=== PATIENT | female | born 1980 | race Caucasian/White ===

== ENCOUNTER 2024-08-04 21:19 | Emergency (ER) | payer MEDICAID, SELFPAY ==
[2024-08-04 21:20] VITALS: BMI 24.1
[2024-08-04 22:19] VITALS: BP 99/68; PULSE 73; RESP 17; TEMP 36.9; O2SAT 99
--- NOTE | 2024-08-04 22:33 | XR_ITS ---
Examination: CT brain head without contrast. 2-D sagittal coronal reconstructions Date and time of exam:August 04, 2024 1054 hrs. Indications: Syncopal episode today followed by left arm pain CTDI: vol (mGy):23 DLP: (mGycm):897 Technique: Multiple CT axial sections of the brain have been obtained, 5 mm slice thickness. Contrast has not been administered. 2-D sagittal, coronal reconstructions have been obtained Low dose protocols were performed. One or more of the following dose reduction techniques were used; automated exposure control, adjustment of the mA and/or KV according to patient size, use of iterative reconstruction technique. Findings: No significant ventricular enlargement. Intra-axial or extra-axial hemorrhage density is not seen. No mass effect or midline shift Basal cisterns are not remarkable. Fourth ventricle is midline. Cranial vault intact. Impression: Negative for acute hemorrhage, mass effect or midline shift
--- NOTE | 2024-08-04 22:34 | XR_ITS ---
Examination: PA lateral chest 2 views Technique: Upright PA lateral chest 2 views Exam date and time: August 04, 2024 1047 hrs. Indications: Syncopal episode followed by chest pain today Findings: Normal heart size Lungs are clear. The osseous structures are intact Impression: No active disease
--- NOTE | 2024-08-04 22:34 | PD.EDRME ---
Rapid Medical Screening Exam RME Arrival date/time: 08/04/24 21:19 44-year-old female presents emergency department reporting had syncopal episode that occurred today. Chief Complaint: Syncope / Near Syncope Time Seen by Provider: 08/04/24 22:26 Vital signs: Vital Signs Temperature 98.5 F 08/04/24 22:19 Pulse Rate 73 08/04/24 22:19 Respiratory Rate 17 08/04/24 22:19 Blood Pressure 99/68 08/04/24 22:19 Pulse Oximetry (%) 99 08/04/24 22:19 Oxygen Delivery Method Room Air 08/04/24 22:19 Vital signs reviewed by provider: Yes
[2024-08-04 23:04] LABS: Collection Type, Urine Clean Catch; RBC,Urine 0 /hpf (0-3)
[2024-08-04 23:21] LABS: Bacteria,Urine Rare; Bilirubin,Urine Negative (Negative); Blood,Urine Negative (Negative); Clarity,Urine Clear (Clear/Hazy); Color,Urine Yellow (Lt Yel-Yel); Glucose, Urine Negative (Negative); Ketones,Urine Negative (Negative); Leukocyte Esterase,Urine Positive (Negative); Nitrite,Urine Negative (Negative); Protein,Urine 1+ (Neg - Trace); Specific Gravity,Urine 1.032 (1.001-1.035); Squamous Epithelial Cell,Urine 3 /hpf (0-5); WBC,Urine 39 /hpf (0-5)
[2024-08-04 23:29] LABS: Basophils # (Auto) 0.1 Thou/mm3 (0.0-0.2); Basophils % (Auto) 1 % (0-2.5); Eosinophils # (Auto) 0.2 Thou/mm3 (0.0-0.5); Eosinophils % (Auto) 2 % (0-10); Hematocrit 37.1 % (36.0-46.0); Hemoglobin 13.2 g/dL (12.0-16.0); Immature Granulocytes % (Auto) 0 % (0-0); Immature Granulocytes Auto 0.02 Thou/mm3 (0.00-0.00); Lymphocytes % (Auto) 22 % (10-50); Mean Corpuscular HGB Conc 35.6 g/dl (31.0-37.0); Mean Corpuscular Hemoglobin 31.8 pg (25.0-35.0); Mean Corpuscular Volume 89 fL (80-100); Monocytes # (Auto) 0.8 Thou/mm3 (0.0-0.8); Monocytes % (Auto) 9 % (0-12); Neutrophils # (Auto) 6.1 Thou/mm3 (1.8-7.7); Neutrophils % (Auto) 67 % (37-80); Nucleated Red Blood Cell % 0 /100 WBC (0); Platelet Count 258 Thou/mm3 (140-440); Red Blood Count 4.15 Miln/mm3 (4.00-5.20); White Blood Count 9.1 Thou/mm3 (3.6-11.0)
[2024-08-04 23:36] LABS: Amphetamine/Methamp Scrn,U Negative (Negative); Barbiturate Screen,Urine Negative (Negative); Benzodiazepines Screen,Urine Negative (Negative); Benzoylecgonine Screen, Ur Negative (Negative); Fentanyl Screen,Urine Negative (Negative); Opiate Screen,Urine Negative (Negative); THC Screen,Urine Negative (Negative)
[2024-08-04 23:45] LABS: B-Type Natriuretic Peptide < 20 pg/mL (0-100); INR 1.1 (0.9-1.3); Partial Thromboplastin Time 27.1 Seconds (22.0-36.0); Prothrombin Time 11.9 Seconds (9.0-12.2)
[2024-08-04 23:46] LABS: Alanine Aminotransferase < 7 U/L (10-49); Albumin, Serum 4.5 gm/dL (3.5-5.0); Albumin/Globulin Ratio 1.6 (1.2-2.2); Alkaline Phosphatase 61 U/L (46-116); Anion Gap 8 (7-16); Aspartate Amino Transferase 18 U/L (0-34); BUN/Creatinine Ratio 23 Ratio (12-20); Bilirubin,Total 0.9 mg/dL (0.3-1.2); Blood Urea Nitrogen 16 mg/dL (9-23); Calcium 10.3 mg/dL (8.3-10.6); Calcium (Corrected) 10.3 mg/dL (8.5-10.1); Chloride 104 mMol/L (98-107); Creatinine (Component) 0.7 mg/dL (0.6-1.3); Estimated Creatinine Clearance 92.3 mL/min (>60); Globulin 2.9 gm/dL (2.3-3.5); Glucose 96 mg/dL (74-106); Magnesium 1.9 mg/dL (1.6-2.6); Osmolality,Calculated 282 (275-295); Potassium 3.7 mMol/L (3.4-5.1); Sodium 141 mMol/L (136-145); Total Protein 7.4 gm/dL (5.7-8.2); Troponin I < 0.002 ng/mL (0.0-0.045); eGFR > 60 See Note
[2024-08-05 00:06] LABS: HCG,Qualitative Serum Negative
[2024-08-05 03:22] VITALS: BP 113/74; BP 116/81; BP 117/75; PULSE 68; PULSE 70; PULSE 73
--- NOTE | 2024-08-05 03:37 | EDNOTE_ITS ---
ED Syncope RME/HPI General Chief Complaint: Syncope / Near Syncope Stated Complaint: FAINTED, LEFT ARM PAIN Time Seen by Provider: 08/04/24 22:26 Source: patient Arrival date/time: 08/04/24 21:19 Mode of arrival: ambulatory Limitations: no limitations RME / HPI RME / HPI narrative: 08/04/24 21:19 44-year-old female presents emergency department reporting had syncopal episode that occurred today. DR GENAO MAIN ED EVALUATION: 44-year-old female with no significant past medical history who presents to the emergency department today for evaluation following syncopal episode earlier today. Patient complains of 4 out of 10 left shoulder pain. Denies any other medical complaints or associated symptoms. Related Data Previous Rx's ?Medication ?Instructions ?Recorded pantoprazole 40 mg tablet,delayed 40 mg PO QDAY #30 tabs 09/24/22 release (Protonix) ibuprofen 800 mg tablet 800 mg PO TID PRN pain #30 tabs 07/19/23 tramadol 50 mg tablet 50 mg PO BID PRN pain #6 tabs 07/19/23 cefuroxime axetil 500 mg tablet 500 mg PO BID #14 tabs 09/30/23 ibuprofen 800 mg tablet 800 mg PO TID PRN pain #60 tabs 09/30/23 Allergies Allergy/AdvReac Type Severity Reaction Status Date / Time No Known Allergies Allergy Verified 07/19/23 16:52 Review of Systems Review of Systems Systems Reviewed: All systems reviewed, normal except as documented Past Medical History Past Medical History CARDIAC: Negative Congestive Heart Failure RESPIRATORY: Negative Chronic Obstructive Pulmonary Disease (COPD) GENITOURINARY: Positive Kidney Stones; Negative Renal Disease ENDOCRINE: Negative Diabetes Mellitus Type 1 or Diabetes Mellitus Type 2 Social History SMOKING STATUS: Never smoker SUBSTANCE USE: does not use ED Exam Narrative Physical exam: GENERAL APPEARANCE: alert and oriented x 4, well-developed, well-nourished, no acute distress VITALS: All vitals were reviewed and the pulse ox is 96% on room air, which is normal according to my interpretation. HEENT: Normocephalic, atraumatic; pupils equal, round, reactive to light; EOMI; mucous membranes pink, moist; oropharynx clear NECK: Supple LUNGS: CTABL; no wheezes, no rales, no rhonchi HEART: Regular rate, regular rhythm; normal S1, S2; no murmurs ABDOMEN: non distended; normal BS; soft, no tenderness, no guarding, no rebound; no masses, no organomegaly, no hernia BACK: no CVA tenderness EXTREMITIES: atraumatic; no edema NEUROLOGIC: awake; alert and oriented x4; cranial nerves II-XII grossly intact; no focal sensory or motor deficits PSYCHIATRIC: appropriate mood and affect SKIN: warm, dry, normal color; no rashes General Limitations: Present no limitations Course Quality Measures none Orders Category Date Time Status Bedside COVID-19 Antigen Test NOW Care 08/04/24 22:34 Completed Bedside Influenza A&B Antigen Test NOW Care 08/04/24 22:34 Completed EKG (ED ONLY) *Do not use* NOW Care 08/04/24 22:34 Completed Orthostatic Vitals NOW Care 08/05/24 02:[address] head/brain wo con Stat Exams 08/04/24 22:33 Completed EKG (ED Only) Stat Exams 08/04/24 22:34 Ordered XR chest 2V Stat Exams 08/04/24 22:34 Completed B-Type Natriuretic Peptide Stat Lab 08/04/24 23:09 Completed CBC Stat Lab 08/04/24 23:09 Completed Comprehensive Metabolic Panel Stat Lab 08/04/24 23:09 Completed Drug Screen,Urine Stat Lab 08/04/24 22:35 Completed HCG,Qualitative Serum Stat Lab 08/04/24 23:09 Completed Magnesium Stat Lab 08/04/24 23:09 Completed Partial Thromboplastin Time Stat Lab 08/04/24 23:09 Completed Prothrombin Time with INR Stat Lab 08/04/24 23:09 Completed Troponin I Stat Lab 08/04/24 23:09 Completed Urinalysis Stat Lab 08/04/24 22:35 Completed Vital Signs Vital signs: Vital Signs Temperature 98.5 F 08/04/24 22:19 Pulse Rate 73 08/04/24 22:19 Respiratory Rate 17 08/04/24 22:19 Blood Pressure 99/68 08/04/24 22:19 Pulse Oximetry (%) 99 08/04/24 22:19 Oxygen Delivery Method Room Air 08/04/24 22:19 Syncope MDM Narrative MDM Narrative:: Scribe Attestation: I, Conjellyfer Howie, am scribing for and in the presence of Dr. Genao. Provider Notation: Although this document has been carefully reviewed, there may still be some phonetic and other typographical errors. These errors are purely grammatical due to imperfections in the software program and should not be construed in any way to compromise the substance of the patient's medical care during this visit. Patient data External records reviewed:: [facility] previous records Clinical information provided by:: patient Social determinants that could affect healthcare access:: none Patient has the following chronic illnesses:: n/a How is presenting disease/condition affected by chronic disease/condition?: no chronic disease Evaluation data The following diagnostics were reviewed and interpreted by me:: lab results and radiology exam(s) Lab and/or radiology exams considered but not ordered:: n/a Interpretation Summary: I personally reviewed the radiology data and agree with the radiologist's interpretation. Examination: CT brain head without contrast. 2-D sagittal coronal reconstructions Date and time of exam:August 04, 2024 1054 hrs. Indications: Syncopal episode today followed by left arm pain Findings: No significant ventricular enlargement. Intra-axial or extra-axial hemorrhage density is not seen. No mass effect or midline shift Basal cisterns are not remarkable. Fourth ventricle is midline. Cranial vault intact. Impression: Negative for acute hemorrhage, mass effect or midline shift Dictated By: Maciel Kirby MD Examination: PA lateral chest 2 views Technique: Upright PA lateral chest 2 views Exam date and time: August 04, 2024 1047 hrs. Indications: Syncopal episode followed by chest pain today Findings: Normal heart size Lungs are clear. The osseous structures are intact Impression: No active disease Dictated By: Maciel Kirby MD Medications / Prescriptions Medications or Prescriptions considered but not ordered:: n/a Medication administrations:: n/a Consultations Consultation(s) initiated? (list below): No Diagnosis Syncope Differential Diagnosis: syncope due to orthostatic hypotension, vasovagal syncope, pulmonary embolism and dehydration Most likely diagnosis given after review of the tests above:: Syncope Admission Request Was there a request for admission?: No Disposition Plan Disposition Plan: Discharge Discharge Attestation Discharge Attestation: The patient and all family members were given an opportunity to ask questions and understood the discharge instructions. Discharge instructions specifically effects, indications for sooner follow up or return to the emergency department, and the expected course of current diagnosis. Patient condition: Stable Discharge Plan Plan Patient Disposition: HOME (Self Care) Prescriptions/Referrals Prescriptions/Med Rec: No Action ibuprofen 800 mg tablet 800 mg PO TID PRN (Reason: pain) Qty: 30 0RF tramadol 50 mg tablet 50 mg PO BID PRN (Reason: pain) Qty: 6 0RF ibuprofen 800 mg tablet 800 mg PO TID PRN (Reason: pain) Qty: 60 0RF cefuroxime axetil 500 mg tablet 500 mg PO BID Qty: 14 0RF pantoprazole [Protonix] 40 mg tablet,delayed release (DR/EC) 40 mg PO QDAY Qty: 30 0RF Referrals: No Primary/Family,Physician [Primary Care Provider] - In 1 week Problem List Clinical Impression: Syncope Patient/Caregiver Discharge Instructions Education Materials: ED Fainting, Uncertain Cause Print Language: [place]de[place] Stand Alone Forms: [facility] Award Info., Patient Portal Info Letter
== END 2024-08-05 03:45 | disposition home or self-care (01) ==
PROVIDERS: Emergency Provider Emergency Medicine
DX: R55 Syncope and collapse (principal); R07.9 Chest pain, unspecified; M79.602 Pain in left arm
CPT/HCPCS: 36415; 70450; 71046; 80053; 80307; 81001; 83735; 83880; 84484; 84703; 85025; 85610; 85730; 87400; 87811; 93005; 99284

== ENCOUNTER 2025-01-08 01:43 | Emergency (ER) | payer MEDICAID, SELFPAY ==
[2025-01-08 01:44] VITALS: BMI 26.4
[2025-01-08 02:50] VITALS: BP 110/74; PULSE 67; RESP 16; TEMP 36.9; O2SAT 99
--- NOTE | 2025-01-08 03:28 | PD.EDHA ---
ED Headache RME/HPI General Chief Complaint: Headache Stated Complaint: HEADACHE/ ALLERGY ATTACK Time Seen by Provider: 01/08/25 03:16 Arrival date/time: 01/08/25 01:43 44F with history of anxiety/panic disorder presents to ED with 4 days of VALLEJO and light-sensitivity. Patient also had a panic attack earlier, but that has resolved. Patient states ibuprofen helps, but doesn't take pain away completely. Limitations: no limitations Related Data Previous Rx's ?Medication ?Instructions ?Recorded pantoprazole 40 mg tablet,delayed 40 mg PO QDAY #30 tabs 09/24/22 release (Protonix) ibuprofen 800 mg tablet 800 mg PO TID PRN pain #30 tabs 07/19/23 tramadol 50 mg tablet 50 mg PO BID PRN pain #6 tabs 07/19/23 cefuroxime axetil 500 mg tablet 500 mg PO BID #14 tabs 09/30/23 ibuprofen 800 mg tablet 800 mg PO TID PRN pain #60 tabs 09/30/23 rizatriptan 10 mg disintegrating See Rx Instructions PO .COMPLEX 01/08/25 tablet (Maxalt-CATEGORY DEVELOPMENT ANALYST) #20 tabs Allergies Allergy/AdvReac Type Severity Reaction Status Date / Time No Known Allergies Allergy Verified 07/19/23 16:52 Review of Systems Review of Systems Systems Reviewed: All systems reviewed, normal except as documented Constitutional Constitutional: Reports system reviewed and no additional complaints, except as documented, Reports as per HPI, Denies fever(s) and Reports headache(s) Eyes Eyes: Reports as per HPI and Reports photophobia ENT Ears, Nose, Mouth, and Throat: Denies disequilibrium and Reports headache(s) Cardiovascular Cardiovascular: Reports system reviewed and no additional complaints, except as documented, Denies chest pain and Denies dyspnea Respiratory Respiratory: Reports system reviewed and no additional complaints, except as documented, Denies cough and Denies dyspnea Gastrointestinal Gastrointestinal: Reports system reviewed and no additional complaints, except as documented, Denies abdominal pain, Denies nausea and Denies vomiting Neurologic Neurologic: Reports system reviewed and no additional complaints, except as documented, Denies confusion, Denies disequilibrium and Reports headache(s) Psychiatric Psychiatric: Reports as per HPI, Denies confusion and Reports panic attacks Past Medical History Past Medical History CARDIAC: Negative Congestive Heart Failure RESPIRATORY: Negative Chronic Obstructive Pulmonary Disease (COPD) GENITOURINARY: Positive Kidney Stones; Negative Renal Disease ENDOCRINE: Negative Diabetes Mellitus Type 1 or Diabetes Mellitus Type 2 Social History SMOKING STATUS: Never smoker SUBSTANCE USE: does not use ED Exam General Limitations: Present no limitations General appearance: Present alert and in no apparent distress Head Head exam: Present atraumatic Eye Eye exam: Present normal appearance, PERRL and EOMI ENT ENT exam: Present normal exam, normal oropharynx and mucous membranes moist Neck Neck exam: Present normal inspection, full ROM and trachea midline Chest Chest inspection: Present normal inspection and symmetric chest wall rise Respiratory Respiratory exam: Present normal lung sounds bilaterally Cardiovascular Cardiovascular exam: Present regular rate, normal rhythm and normal heart sounds Abdominal Exam Abdominal exam: Present soft and normal bowel sounds Extremities Exam Extremities exam: Present normal inspection and full ROM Back Exam Back exam: Present normal inspection and full ROM Neurological Exam Neurological exam: Present alert, oriented X3 and CN II-XII intact Psychiatric Psychiatric exam: Present normal affect and normal mood Skin Skin exam: Present warm, dry, intact and normal color Course Quality Measures none Orders Category Date Time Status Metoclopramide [Reglan] Med 01/08/25 03:19 Discontinued 10 mg PO X1 ONE SUMAtriptan INJ [Imitrex Inj] Med 01/08/25 03:19 Discontinued 6 mg SC X1 ONE Vital Signs Vital signs: Vital Signs Temperature 98.5 F 01/08/25 02:50 Pulse Rate 67 01/08/25 02:50 Respiratory Rate 16 01/08/25 02:50 Blood Pressure 110/74 01/08/25 02:50 Pulse Oximetry (%) 99 01/08/25 02:50 Oxygen Delivery Method Room Air 01/08/25 02:50 O2 at 99% on RA and WNLs Headache MDM Narrative MDM Narrative:: 44F with history of anxiety/panic disorder presents to ED with 4 days of VALLEJO and light-sensitivity. Patient also had a panic attack earlier, but that has resolved. Patient states ibuprofen helps, but doesn't take pain away completely. Physical exam reveals normal pupil response and EOM. Normal WOB. Gait normal. Patient is afebrile, calm, and alert. Patient had normal head CT 6 months ago. Migraine meds improved symptoms. Patient data External records reviewed:: [facility] previous records Clinical information provided by:: patient Social determinants that could affect healthcare access:: mental health Patient has the following chronic illnesses:: anxiety/panic disorder How is presenting disease/condition affected by chronic disease/condition?: exacerbated by Evaluation data The following diagnostics were reviewed and interpreted by me:: other (specify) (none) Lab and/or radiology exams considered but not ordered:: not ordered Interpretation Summary: n/a Medications / Prescriptions Medications or Prescriptions considered but not ordered:: ordered Medication administrations:: Medication Administration History Discontinued Medications Metoclopramide HCl (Metoclopramide 5 Mg Tablet) 10 mg PO X1 ONE Stop: 01/08/25 03:20 Last Admin: 01/08/25 03:35 Dose: 10 mg Documented By: Sumatriptan Succinate (Sumatriptan Inj 6 Mg/0.5 Ml Vial) 6 mg SC X1 ONE Stop: 01/08/25 03:20 Last Admin: 01/08/25 03:35 Dose: 6 mg Documented By: above Consultations Consultation(s) initiated? (list below): No Diagnosis Differential diagnosis headache: migraine, tension headache, subarachnoid hemorrhage, headache, meningitis, sinusitis and postconcussion syndrome Most likely diagnosis given after review of the tests above:: Migraine Admission Indicated Admission indicated?: not indicated Admission Request Was there a request for admission?: No Disposition Plan Disposition Plan: Discharge Discharge Attestation Discharge Attestation: The patient and all family members were given an opportunity to ask questions and understood the discharge instructions. Discharge instructions specifically effects, indications for sooner follow up or return to the emergency department, and the expected course of current diagnosis. Patient condition: Stable Discharge Plan Plan Patient Disposition: HOME (Self Care) Discharge Disposition comment: Stable Prescriptions/Referrals Prescriptions/Med Rec: New rizatriptan [Maxalt-CATEGORY DEVELOPMENT ANALYST] 10 mg tablet,disintegrating See Rx Instructions .ROUTE .COMPLEX Qty: 20 0RF Rx Instructions: take 1 tab at onset of headache; if no relief may repeat 1 tab after at least 2 hrs; max = 3 tabs/24 hr No Action ibuprofen 800 mg tablet 800 mg PO TID PRN (Reason: pain) Qty: 30 0RF tramadol 50 mg tablet 50 mg PO BID PRN (Reason: pain) Qty: 6 0RF ibuprofen 800 mg tablet 800 mg PO TID PRN (Reason: pain) Qty: 60 0RF cefuroxime axetil 500 mg tablet 500 mg PO BID Qty: 14 0RF pantoprazole [Protonix] 40 mg tablet,delayed release (DR/EC) 40 mg PO QDAY Qty: 30 0RF Referrals: Temporary Provider,ED [Physician] - In 1 week Problem List Clinical Impression: Migraine Patient/Caregiver Discharge Instructions Education Materials: ED Headache, Migraine, Classic Additional Instructions: Please follow-up with PCP within 24-48 hours and return immediately if symptoms worsen. Print Language: [place]ican Stand Alone Forms: Patient Portal Info Letter PA/[employer] Supervising Physician PA/[employer] Supervising Physician: Dr. Christine
[2025-01-08] MEDS: SUMAtriptan INJ 6 MG/0.5 ML VIAL SC (03:35)
[2025-01-08] MEDS: METOCLOPRAMIDE 5 MG TABLET 10 MG PO (03:35)
== END 2025-01-08 04:26 | disposition home or self-care (01) ==
PROVIDERS: Emergency Provider Emergency Medicine; PCP Family Medicine
DX: G43.909 Migraine, unspecified, not intractable, without status migrainosus (principal)
CPT/HCPCS: 96372; 99283; J3030; A9270

== ENCOUNTER 2025-04-10 10:14 | Emergency (ER) | payer MEDICAID, SELFPAY ==
[2025-04-10 10:14] VITALS: BMI 22.3
[2025-04-10 11:13] VITALS: BP 99/65; PULSE 78; RESP 16; TEMP 37.1; O2SAT 99
--- NOTE | 2025-04-10 11:18 | XR_ITS ---
Examination: CT abdomen and pelvis without contrast. Coronal 3-D reconstructions. Sagittal 2-D reconstructions. Date and time of exam:April 10, 2025 1428 hours, comparison September 30, 2023 INDICATIONS: Left lower abdominal pain beginning today, history kidney stones CTDI: vol (mGy): 5.93 DLP: (mGycm): 312 Technique: Axial images of the abdomen have been obtained, 3 mm slice thickness Intravenous contrast material has not been administered. Low dose protocols were performed. One or more of the following dose reduction techniques were used; automated exposure control, adjustment of the mA and/or KV according to patient size, use of iterative reconstruction technique. Findings: No focal liver or splenic lesions Gallstones No pancreatic or adrenal mass Bilateral renal calculi, the largest 4 mm left kidney No hydronephrosis or ureteral calculi Normal appendix No bowel obstruction Aorta normal size Anteverted diffusely mildly enlarged uterus No bladder mass or bladder calculi Moderate disc narrowing L5-S1 IMPRESSION: Bilateral nonobstructing renal calculi, no hydronephrosis or renal calculi Normal appendix Recommend pelvic sonography to assess the enlarged uterus No bladder mass or bladder calculi
--- NOTE | 2025-04-10 11:20 | PD.EDABDPN ---
ED Abdominal Pain RME/HPI General Chief Complaint: Abdominal Pain Stated complaint: LEFT FLANK PAIN SINCE YEST Time seen by provider: 04/10/25 11:16 Arrival date/time: 04/10/25 10:14 Limitations: no limitations RME / HPI RME / HPI narrative: 44-year-old female here today with LLQ pain since yesterday with nausea. Hx of kidney stones. She denies any fevers or chills. No changes in bowel movements. Denies any lower leg edema. Denies any urinary frequency or dysuria. She has no other acute complaints. Related Data Previous Rx's ?Medication ?Instructions ?Recorded pantoprazole 40 mg tablet,delayed 40 mg PO QDAY #30 tabs 09/24/22 release (Protonix) ibuprofen 800 mg tablet 800 mg PO TID PRN pain #30 tabs 07/19/23 tramadol 50 mg tablet 50 mg PO BID PRN pain #6 tabs 07/19/23 cefuroxime axetil 500 mg tablet 500 mg PO BID #14 tabs 09/30/23 ibuprofen 800 mg tablet 800 mg PO TID PRN pain #60 tabs 09/30/23 rizatriptan 10 mg disintegrating See Rx Instructions PO .COMPLEX 01/08/25 tablet (Maxalt-CARE MANAGEMENT COORDINATOR) #20 tabs sulfamethoxazole 800 1 tab PO BID 7 days #14 tabs 04/10/25 mg-trimethoprim 160 mg tablet (Bactrim DS) Allergies Allergy/AdvReac Type Severity Reaction Status Date / Time No Known Allergies Allergy Verified 04/10/25 10:16 Review of Systems Review of Systems Systems Reviewed: All systems reviewed, normal except as documented ED Exam General Limitations: Present no limitations General appearance: Present alert and in no apparent distress Head Head exam: Present atraumatic Eye Eye exam: Present normal appearance, PERRL and EOMI ENT ENT exam: Present normal exam, normal oropharynx and mucous membranes moist Neck Neck exam: Present normal inspection, full ROM and trachea midline Chest Chest inspection: Present normal inspection and symmetric chest wall rise Respiratory Respiratory exam: Present normal lung sounds bilaterally Cardiovascular Cardiovascular exam: Present regular rate, normal rhythm and normal heart sounds Abdominal Exam Abdominal exam: Present soft and normal bowel sounds Extremities Exam Extremities exam: Present normal inspection and full ROM Back Exam Back exam: Present normal inspection and full ROM; Absent CVA tenderness (R) or CVA tenderness (L) Neurological Exam Neurological exam: Present alert and oriented X3 Psychiatric Psychiatric exam: Present normal affect and normal mood Skin Skin exam: Present warm, dry, intact and normal color Course Quality Measures none Orders Category Date Time Status CT abdomen pelvis wo con Stat Exams 04/10/25 11:18 Completed US pelvic complete Stat Exams 04/10/25 15:20 Completed CBC Stat Lab 04/10/25 11:36 Completed CMP [Comprehensive Metabolic Panel] Stat Lab 04/10/25 11:36 Completed HCG,Qualitative Serum Stat Lab 04/10/25 11:36 Completed UA, C/S IF [Urinalysis, C/S if Indicated] Stat Lab 04/10/25 12:22 Completed Ondansetron Odt [Zofran Odt] Med 04/10/25 11:18 Discontinued 4 mg PO X1 ONE Trimethoprim/Sulfa 160/800 Ds [Bactrim Ds] Med 04/10/25 17:54 Discontinued 1 tab PO X1 ONE Vital Signs Vital signs: Vital Signs Temperature 98.7 F 04/10/25 11:13 Pulse Rate 78 04/10/25 11:13 Respiratory Rate 16 04/10/25 11:13 Blood Pressure 99/65 04/10/25 11:13 Pulse Oximetry (%) 99 04/10/25 11:13 Oxygen Delivery Method Room Air 04/10/25 11:13 Abdominal Pain MDM MDM Narrative MDM Narrative:: 44-year-old female here today with LLQ pain since yesterday with nausea. Hx of kidney stones. She denies any fevers or chills. No changes in bowel movements. Denies any lower leg edema. Denies any urinary frequency or dysuria. She has no other acute complaints. On exam, patient is ill-appearing but nontoxic-appearing. Vital signs are stable. Abdomen is soft and supple. Workup here was obtained, CBC is unremarkable. Metabolic panel is unremarkable. Urinalysis reveals microscopic hematuria. CT of the abdomen pelvis was obtained which is unremarkable exception of enlarged uterus. We discussed her test findings. Patient states she is not having any current menstrual cycle. We also discussed her CAT scan. I do believe the patient can consider an outpatient ultrasound, this was discussed with the patient. However patient states she sometimes struggles to see her primary care provider due to availability. Will obtain the ultrasound here. Ultrasound was obtained is unremarkable. We discussed her workup. Will treat her for UTI. Return as needed for worsening emergent changes. Patient data External records reviewed:: None Clinical information provided by:: patient Social determinants that could affect healthcare access:: none Patient has the following chronic illnesses:: n/a How is presenting disease/condition affected by chronic disease/condition?: no chronic disease Evaluation data The following diagnostics were reviewed and interpreted by me:: lab results and radiology exam(s) Lab and/or radiology exams considered but not ordered:: n/a Interpretation Summary: Hematuria Medications / Prescriptions Medications or Prescriptions considered but not ordered:: n/a Medication administrations:: Medication Administration History Discontinued Medications Ondansetron HCl (Ondansetron Odt 4 Mg Tabrap) 4 mg PO X1 ONE; Protocol Stop: 04/10/25 11:19 Last Admin: 04/10/25 13:03 Dose: 4 mg Documented By: JAYY Trimethoprim/Sulfamethoxazole (Trimethoprim/Sulfa 160/800 Ds Tablet) 1 tab PO X1 ONE Stop: 04/10/25 17:55 See above Consultations Consultation(s) initiated? (list below): No Diagnosis Differential diagnosis abdominal pain: calculus of kidney, constipation and small bowel obstruction Most likely diagnosis given after review of the tests above:: Hematuria, UTI Admission Indicated Admission indicated?: not indicated Admission Request Was there a request for admission?: No Disposition Plan Disposition Plan: Discharge Discharge Attestation Discharge Attestation: The patient and all family members were given an opportunity to ask questions and understood the discharge instructions. Discharge instructions specifically effects, indications for sooner follow up or return to the emergency department, and the expected course of current diagnosis. Patient condition: Stable Discharge Plan Plan Patient Disposition: HOME (Self Care) Patient condition on transfer: Stable Prescriptions/Referrals Prescriptions/Med Rec: New sulfamethoxazole-trimethoprim [Bactrim DS] 800-160 mg tablet 1 tab PO BID 7 Days Qty: 14 0RF No Action ibuprofen 800 mg tablet 800 mg PO TID PRN (Reason: pain) Qty: 30 0RF tramadol 50 mg tablet 50 mg PO BID PRN (Reason: pain) Qty: 6 0RF ibuprofen 800 mg tablet 800 mg PO TID PRN (Reason: pain) Qty: 60 0RF cefuroxime axetil 500 mg tablet 500 mg PO BID Qty: 14 0RF rizatriptan [Maxalt-CARE MANAGEMENT COORDINATOR] 10 mg tablet,disintegrating See Rx Instructions .ROUTE .COMPLEX Qty: 20 0RF Rx Instructions: take 1 tab at onset of headache; if no relief may repeat 1 tab after at least 2 hrs; max = 3 tabs/24 hr pantoprazole [Protonix] 40 mg tablet,delayed release (DR/EC) 40 mg PO QDAY Qty: 30 0RF Referrals: No Primary/Family,Physician [Primary Care Provider] - In 1 week Problem List Clinical Impression: UTI (urinary tract infection) Patient/Caregiver Discharge Instructions Education Materials: Urinary Tract Infections in Women, Understanding Urinary Tract ... Additional Instructions: - Increase oral hydration. - Use the provided antibiotic as prescribed. - Follow-up with your clinic as needed. - Please do not hesitate to return as needed for any worsening or emergent changes. Print Language: Syrian Stand Alone Forms: Adele Award Info., Patient Portal Info Letter
[2025-04-10 11:42] LABS: Basophils # (Auto) 0.0 Thou/mm3 (0.0-0.2); Basophils % (Auto) 0 % (0-2.5); Eosinophils # (Auto) 0.0 Thou/mm3 (0.0-0.5); Eosinophils % (Auto) 0 % (0-10); Hematocrit 38.1 % (36.0-46.0); Hemoglobin 13.5 g/dL (12.0-16.0); Immature Granulocytes Auto 0.03 Thou/mm3 (0.00-0.00); Lymphocytes # (Auto) 0.8 Thou/mm3 (1.0-4.8); Lymphocytes % (Auto) 9 % (10-50); Mean Corpuscular HGB Conc 35.4 g/dl (31.0-37.0); Mean Corpuscular Hemoglobin 32.6 pg (25.0-35.0); Mean Corpuscular Volume 92 fL (80-100); Monocytes # (Auto) 0.4 Thou/mm3 (0.0-0.8); Monocytes % (Auto) 5 % (0-12); Neutrophils # (Auto) 7.1 Thou/mm3 (1.8-7.7); Neutrophils % (Auto) 85 % (37-80); Nucleated Red Blood Cell # 0.00 Thou/mm3 (0.00-0.00); Nucleated Red Blood Cell % 0 /100 WBC (0); Platelet Count 241 Thou/mm3 (140-440); RDW Standard Deviation 42.6 fL (36.4-46.3); Red Blood Count 4.14 Miln/mm3 (4.00-5.20); White Blood Count 8.4 Thou/mm3 (3.6-11.0)
[2025-04-10 12:02] LABS: HCG,Qualitative Serum Negative
[2025-04-10 12:15] LABS: Alanine Aminotransferase < 7 U/L (10-49); Albumin, Serum 4.2 gm/dL (3.5-5.0); Albumin/Globulin Ratio 1.6 (1.2-2.2); Alkaline Phosphatase 58 U/L (46-116); Anion Gap 8 (7-16); Aspartate Amino Transferase 16 U/L (0-34); BUN/Creatinine Ratio 16 Ratio (12-20); Bilirubin,Total 0.7 mg/dL (0.3-1.2); Blood Urea Nitrogen 11 mg/dL (9-23); Calcium 9.9 mg/dL (8.3-10.6); Calcium (Corrected) 9.9 mg/dL (8.5-10.1); Carbon Dioxide 26.0 mMol/L (20.0-31.0); Chloride 107 mMol/L (98-107); Creatinine (Component) 0.7 mg/dL (0.6-1.3); Estimated Creatinine Clearance 92.3 mL/min (>60); Globulin 2.6 gm/dL (2.3-3.5); Glucose 95 mg/dL (74-106); Osmolality,Calculated 280 (275-295); Potassium 4.4 mMol/L (3.4-5.1); Sodium 141 mMol/L (136-145); Total Protein 6.8 gm/dL (5.7-8.2); eGFR > 60 See Note
[2025-04-10 12:30] LABS: Collection Type, Urine Voided
[2025-04-10 12:42] LABS: Bacteria,Urine Rare; Bilirubin,Urine Negative (Negative); Blood,Urine 2+ (Negative); Clarity,Urine Clear (Clear/Hazy); Color,Urine Yellow (Lt Yel-Yel); Culture Indicated,Urine Not Indicated; Glucose, Urine Negative (Negative); Ketones,Urine Negative (Negative); Leukocyte Esterase,Urine Negative (Negative); Nitrite,Urine Negative (Negative); PH,Urine 7.0 (5.0-7.0); Protein,Urine Trace (Neg - Trace); RBC,Urine 97 /hpf (0-3); Specific Gravity,Urine 1.024 (1.001-1.035); Squamous Epithelial Cell,Urine 1 /hpf (0-5); Urobilinogen,Urine Negative mg/dL (0.0-1.0); WBC,Urine 2 /hpf (0-5)
[2025-04-10] MEDS: ONDANSETRON ODT 4 MG TABRAP PO (13:03)
[2025-04-10 15:14] VITALS: BP 101/62; PULSE 67; RESP 18; TEMP 36.5; O2SAT 99
--- NOTE | 2025-04-10 15:20 | XR_ITS ---
Examination: Pelvic ultrasound, transabdominal, complete Technique: Transabdominal ultrasound of the pelvis performed using grayscale imaging Date and time of exam: April 10, 2025, 1557 hours INDICATIONS: Left flank pelvic pain beginning 2 days ago FINDINGS: Uterus 10.6 cm endometrial stripe with 6 cm No uterine mass or intrauterine gestation Right ovary 3.1 cm arterial flow 20 mm follicular cyst Left ovary 4.2 cm arterial flow 23 mm follicular cyst IMPRESSION: Negative examination
[2025-04-10 17:33] VITALS: BP 104/63; PULSE 69; RESP 18; TEMP 36.6; O2SAT 99
[2025-04-10] MEDS: TRIMETHOPRIM/SULFA 160/800 DS TABLET 1 TAB PO (18:00)
== END 2025-04-10 18:07 | disposition home or self-care (01) ==
PROVIDERS: Physician Assistant Medical; Emergency Provider Emergency Medicine
DX: N39.0 Urinary tract infection, site not specified (principal); Z87.442 Personal history of urinary calculi
CPT/HCPCS: 36415; 74176; 76856; 80053; 81001; 84703; 85025; 99283; Q0162; A9270

== ENCOUNTER 2025-04-15 17:39 | Emergency (ER) | payer MEDICAID, SELFPAY ==
[2025-04-15 17:56] VITALS: BP 96/55; PULSE 89; RESP 16; TEMP 37.1; O2SAT 98; BMI 21.6
--- NOTE | 2025-04-15 18:10 | XR_ITS ---
Examination: CT brain head without contrast. 2-D sagittal coronal reconstructions Date and time of exam:April 15, 2025, 1836 hours, comparison August 04, 2024 INDICATIONS: Headache post syncopal episode today CTDI: vol (mGy):44.8 DLP: (mGycm):852 Technique: Multiple CT axial sections of the brain have been obtained, 5 mm slice thickness. Contrast has not been administered. 2-D sagittal, coronal reconstructions have been obtained Low dose protocols were performed. One or more of the following dose reduction techniques were used; automated exposure control, adjustment of the mA and/or KV according to patient size, use of iterative reconstruction technique. Findings: No significant ventricular enlargement. Intra-axial or extra-axial hemorrhage density is not seen. No mass effect or midline shift Basal cisterns are not remarkable. Fourth ventricle is midline. Cranial vault intact. Impression: Negative for acute hemorrhage, mass effect or midline shift Advise clinical correlation follow-up accordingly
--- NOTE | 2025-04-15 18:11 | EKG_ITS ---
[facility] Test Date: 2025-04-15 Pat Name: DC LAGOS Department: Room: - Gender: Female [employer] Administrator: : 1980 Requested By: Latricia Keyes Order Number: [id number] Reading MD: Latricia Keyes Measurements Intervals [place] Rate: 103 P: 70 DC: 141 QRS: 75 QRSD: 91 T: 64 QT: 312 QTc: 410 Interpretive Statements SINUS TACHYCARDIA ABNORMAL RHYTHM ECG Compared to ECG 09/24/2022 16:25:02 Sinus rhythm no longer present /store/[id number].pdf
[2025-04-15 19:22] LABS: Basophils # (Auto) 0.0 Thou/mm3 (0.0-0.2); Basophils % (Auto) 1 % (0-2.5); Eosinophils # (Auto) 0.2 Thou/mm3 (0.0-0.5); Eosinophils % (Auto) 5 % (0-10); Hematocrit 37.3 % (36.0-46.0); Hemoglobin 13.4 g/dL (12.0-16.0); Immature Granulocytes Auto 0.01 Thou/mm3 (0.00-0.00); Lymphocytes # (Auto) 0.4 Thou/mm3 (1.0-4.8); Lymphocytes % (Auto) 11 % (10-50); Mean Corpuscular HGB Conc 35.9 g/dl (31.0-37.0); Mean Corpuscular Hemoglobin 32.8 pg (25.0-35.0); Mean Corpuscular Volume 91 fL (80-100); Monocytes # (Auto) 0.6 Thou/mm3 (0.0-0.8); Monocytes % (Auto) 17 % (0-12); Neutrophils # (Auto) 2.4 Thou/mm3 (1.8-7.7); Neutrophils % (Auto) 66 % (37-80); Nucleated Red Blood Cell # 0.00 Thou/mm3 (0.00-0.00); Nucleated Red Blood Cell % 0 /100 WBC (0); Platelet Count 214 Thou/mm3 (140-440); RDW Standard Deviation 42.0 fL (36.4-46.3); Red Blood Count 4.09 Miln/mm3 (4.00-5.20); White Blood Count 3.6 Thou/mm3 (3.6-11.0)
[2025-04-15 19:36] LABS: Collection Type, Urine Voided
[2025-04-15 19:53] LABS: Alanine Aminotransferase < 7 U/L (10-49); Albumin, Serum 4.3 gm/dL (3.5-5.0); Albumin/Globulin Ratio 1.4 (1.2-2.2); Alcohol, Blood Medical < 3.0 mg/dL (0-10.0); Alkaline Phosphatase 58 U/L (46-116); Anion Gap 9 (7-16); Aspartate Amino Transferase 23 U/L (0-34); BUN/Creatinine Ratio 15 Ratio (12-20); Bilirubin,Total 0.4 mg/dL (0.3-1.2); Blood Urea Nitrogen 12 mg/dL (9-23); Calcium 9.3 mg/dL (8.3-10.6); Calcium (Corrected) 9.3 mg/dL (8.5-10.1); Carbon Dioxide 24.6 mMol/L (20.0-31.0); Chloride 106 mMol/L (98-107); Creatinine (Component) 0.8 mg/dL (0.6-1.3); Estimated Creatinine Clearance 80.8 mL/min (>60); Globulin 3.0 gm/dL (2.3-3.5); Glucose 89 mg/dL (74-106); Osmolality,Calculated 278 (275-295); Potassium 3.8 mMol/L (3.4-5.1); Sodium 140 mMol/L (136-145); Total Protein 7.3 gm/dL (5.7-8.2); Troponin I < 0.002 ng/mL (0.0-0.045); eGFR > 60 See Note
[2025-04-15 19:56] LABS: Amphetamine/Methamp Scrn,U Negative (Negative); Bacteria,Urine Rare; Barbiturate Screen,Urine Negative (Negative); Benzodiazepines Screen,Urine Negative (Negative); Benzoylecgonine Screen, Ur Negative (Negative); Bilirubin,Urine Negative (Negative); Blood,Urine Negative (Negative); Calcium Oxalate Crystals,Urine Rare; Clarity,Urine Clear (Clear/Hazy); Color,Urine Yellow (Lt Yel-Yel); Fentanyl Screen,Urine Negative (Negative); Glucose, Urine Negative (Negative); Ketones,Urine Negative (Negative); Leukocyte Esterase,Urine Negative (Negative); Nitrite,Urine Negative (Negative); Opiate Screen,Urine Negative (Negative); PH,Urine 6.0 (5.0-7.0); Protein,Urine 1+ (Neg - Trace); RBC,Urine 26 /hpf (0-3); Specific Gravity,Urine 1.035 (1.001-1.035); Squamous Epithelial Cell,Urine 4 /hpf (0-5); THC Screen,Urine Negative (Negative); Urobilinogen,Urine 3.0 mg/dL (0.0-1.0); WBC,Urine 3 /hpf (0-5)
[2025-04-15 19:58] LABS: HCG,Qualitative Serum Negative
--- NOTE | 2025-04-15 20:22 | EDNOTE_ITS ---
Neuro Symptoms Deficit-RME/HPI General Chief Complaint: Headache Stated Complaint: HEADACHE, DIZZY, SHAKING & FELL TO GROUND Time Seen by Provider: 04/15/25 17:41 Arrival date/time: 04/15/25 17:39 This is a case of a 44-year-old female with no medical history came in in the emergency room due to headache and dizziness history of present illness started 4 hours prior to arrival in the emergency room patient started to have headache dizziness and had syncopal episode patient states that her family member states that she has seizure-like activity and lasted for 60 seconds patient remember the incident happened patient fell but did not hit his head no other injury noted denies any neck chest or abdominal injury patient also have nausea vomiting but no abdominal pain denies any chest pain shortness of breath or palpitation denies any numbness weakness or tingling sensation Limitations: no limitations Related Data Previous Rx's ?Medication ?Instructions ?Recorded pantoprazole 40 mg tablet,delayed 40 mg PO QDAY #30 ta bs 09/24/22 release (Protonix) ibuprofen 800 mg tablet 800 mg PO TID PRN pain #30 t abs 07/19/23 tramadol 50 mg tablet 50 mg PO BID PRN pain #6 tab s 07/19/23 cefuroxime axetil 500 mg tablet 500 mg PO BID #14 tabs 09/30/23 ibuprofen 800 mg tablet 800 mg PO TID PRN pain #60 t abs 09/30/23 rizatriptan 10 mg disintegrating See Rx Instructions P O .COMPLEX 01/08/25 tablet (Maxalt-SEARCH MARKETING ANALYST) #20 tabs sulfamethoxazole 800 1 tab PO BID 7 days #14 tabs 04/10/25 mg-trimethoprim 160 mg tablet (Bactrim DS) meclizine 25 mg tablet 25 mg PO TID PRN dizziness # 20 tabs 04/15/25 ondansetron 4 mg disintegrating 4 mg PO Q8H PRN nausea and 04/15/25 tablet vomiting #20 tabs Allergies Allergy/AdvReac Type Severity Reaction Status Date / Time No Known Allergies Allergy Verified 04/15/25 17:43 Review of Systems Review of Systems Systems Reviewed: All systems reviewed, normal except as documented Constitutional Constitutional: Reports system reviewed and no additional complaints, except as documented, Denies chills, Denies fatigue, Denies fever(s) and Reports headache(s) Eyes Eyes: Reports system reviewed and no additional complaints, except as d ocumented, Denies blurry vision, Denies change in vision and Denies decreased night vision ENT Ears, Nose, Mouth, and Throat: Reports headache(s) Cardiovascular Cardiovascular: Reports system reviewed and no additional complaints, except as documented, Reports as per HPI, Denies chest pain and Denies dyspnea Respiratory Respiratory: Reports system reviewed and no additional complaints, except as documented and Denies dyspnea Gastrointestinal Gastrointestinal: Reports system reviewed and no additional complaints, except as documented, Reports as per HPI, Reports nausea and Denies vomiting Musculoskeletal Musculoskeletal: Reports system reviewed and no additional complaints, except as documented and Reports as per HPI Neurologic Neurologic: Reports system reviewed and no additional complaints, except as documented, Reports as per HPI and Reports headache(s) Endocrine Endocrine: Denies fatigue Past Medical History Past Medical History CARDIAC: Negative Congestive Heart Failure RESPIRATORY: Negative Chronic Obstructive Pulmonary Disease (COPD) GENITOURINARY: Positive Kidney Stones; Negative Renal Disease ENDOCRINE: Negative Diabetes Mellitus Type 1 or Diabetes Mellitus Type 2 Social History SMOKING STATUS: Never smoker SUBSTANCE USE: does not use ED Exam General Limitations: Present no limitations General appearance: Present alert, in no apparent distress and other (Patient is awake alert oriented not in distress nontoxic looking well-hydrated well- nourished) Head Head exam: Present atraumatic, normocephalic, normal inspection and other (No contusion no hematoma no open wound) Eye Eye exam: Present normal appearance, PERRL, EOMI and other (no pappilema nohyphema) ENT ENT exam: Present normal exam, normal oropharynx, mucous membranes moist and other (Normal HEENT exam) Neck Neck exam: Present normal inspection, full ROM, trachea midline and other (Negative for meningeal sign); Absent tenderness, meningismus or lymphadenopathy Chest Chest inspection: Present normal inspection and symmetric chest wall rise; Absent tenderness Respiratory Respiratory exam: Present normal lung sounds bilaterally; Absent respiratory distress, wheezes, stridor, accessory muscle use or prolonged expiratory phase Cardiovascular Cardiovascular exam: Present regular rate, normal rhythm and normal heart sounds; Absent bradycardia, tachycardia, irregular rhythm, systolic murmur or diastolic murmur Abdominal Exam Abdominal exam: Present soft and normal bowel sounds; Absent distention, tenderness, guarding, rebound, rigidity, diminished bowel sounds, hyperactive bowel sounds, hypoactive bowel sounds or organomegaly Extremities Exam Extremities exam: Present normal inspection and full ROM Back Exam Back exam: Present normal inspection and full ROM Neurological Exam Neurological exam: Present alert, oriented X3, CN II-XII intact, normal gait, reflexes normal and other (Awake alert oriented x 4 no focal deficit GCS 15/15 steady gait memory intact no slurring speech no facial droop CN II through XII is normal motor or sensory reflex were normal negative Babinski); Absent motor sensory deficit Psychiatric Psychiatric exam: Present normal affect and normal mood Skin Skin exam: Present warm, dry, intact and normal color Course Quality Measures none Orders Category Date Time Status EKG (ED ONLY) *Do not use* NOW Care 04/15/25 18:[address] head/brain wo con Stat Exams 04/15/25 18:10 Completed EKG (ED Only) Stat Exams 04/15/25 18:11 Draft Alcohol, Blood Medical Stat Lab 04/15/25 19:02 Completed CBC Stat Lab 04/15/25 19:02 Completed CMP [Comprehensive Metabolic Panel] Stat Lab 04/15/25 19:02 Completed Drug Screen,Urine Stat Lab 04/15/25 19:26 Completed HCG,Qualitative Serum Stat Lab 04/15/25 19:02 Completed Troponin I Stat Lab 04/15/25 19:02 Completed Urinalysis Stat Lab 04/15/25 19:26 Completed Acetaminophen Tab [Tylenol Tab] Med 04/15/25 20:21 Once 650 mg PO X1 ONE Meclizine HCl [Antivert] Med 04/15/25 20:21 Once 50 mg PO X1 ONE Ondansetron Odt [Zofran Odt] Med 04/15/25 20:21 Once 4 mg PO X1 ONE Vital Signs Vital signs: Vital Signs Temperature 98.7 F 04/15/25 17:56 Pulse Rate 89 04/15/25 17:56 Respiratory Rate 16 04/15/25 17:56 Blood Pressure 96/55 L 04/15/25 17:56 Pulse Oximetry (%) 98 04/15/25 17:56 Oxygen Delivery Method Room Air 04/15/25 17:56 Oxygen saturation is 98% in room air Neuro Symptoms / Deficit MDM Narrative MDM Narrative:: This is a case of a 44-year-old female with no medical history came in in the emergency room due to headache and dizziness history of present illness started 4 hours prior to arrival in the emergency room patient started to have headache dizziness and had syncopal episode patient states that her family member states that she has seizure-like activity and lasted for 60 seconds patient remember the incident happened patient fell but did not hit his head no other injury noted denies any neck chest or abdominal injury patient also have nausea vomiting but no abdominal pain denies any chest pain shortness of breath or palpitation denies any numbness weakness or tingling sensation physical examination patient is awake alert oriented not in distress nontoxic looking well-hydrated well-nourished excellent skin turgor negative for meningeal signs eye exam showed perrl rom intact no pappiledema lungs sound is clear no crackles no rales no retraction no stridor heart normal rate regular rhythm no murmur neurological exam is normal awake alert oriented x 4 no focal deficit GCS 15/15 steady gait memory intact no slurring of speech no facial droop CN II through XII is normal motor or sensory reflex normal negative Babinski based on my physical examination and history patient symptoms suggestive of possible seizure-like activity versus syncope patient was given Tylenol meclizine and Zofran for headache dizziness and nausea which resolved the symptoms have a long discussion with the patient patient need to see a neurosurgeon for further evaluation and treatment and ER precaution for worsening symptoms he is advised blood test showed no leukocytosis no anemia kidney and liver function is normal no electrolyte imbalance urinalysis is normal negative for alcohol negative for drug screen sinus rhythm on EKG CT scan of the head were also normal urinalysis is normal patient will be discharged home in stable condition Patient was discharged with comfortable condition walking with stable gait. Patient verbalized no further complains explained diagnosis and answered patient question. Patient is comfortable with the proposed management plan including the need to follow up with his/her primary care physician and any specialist if applicable Discussed patient for any urgent condition or worsening sx, He/She needed to go to emergency room immediately or call 911. Patient acknowledge the responsibility to follow up as instructed and to monitor her/his symptoms. For any persistence of the symptoms for more than 3-5 days return precaution advised. Discussed the result of the test and was given printed discharge instruction Patient data External records reviewed:: [facility] previous records Clinical information provided by:: patient Social determinants that could affect healthcare access:: none Patient has the following chronic illnesses:: None How is presenting disease/condition affected by chronic disease/condition?: no chronic disease Evaluation data The following diagnostics were reviewed and interpreted by me:: lab results, radiology exam(s) and EKG tracing(s) Lab and/or radiology exams considered but not ordered:: Reviewed Interpretation Summary: Reviewed Medications / Prescriptions Medications or Prescriptions considered but not ordered:: Given Medication administrations:: Medication Administration History Acetaminophen (Acetaminophen 325 Mg Tablet) 650 mg PO X1 ONE Stop: 04/15/25 20:22 Meclizine HCl (Meclizine Hcl 25 Mg Tablet) 50 mg PO X1 ONE Stop: 04/15/25 20:22 Ondansetron HCl (Ondansetron Odt 4 Mg Tabrap) 4 mg PO X1 ONE; Protocol Stop: 04/15/25 20:22 Given Consultations Consultation(s) initiated? (list below): No Diagnosis Neuro Differential Diagnosis: convulsions and other (Syncope) Most likely diagnosis given after review of the tests above:: Syncope seizure-like activity Admission Indicated Admission indicated?: not indicated Explain why admission is indicated or not indicated:: Not indicated Admission Request Was there a request for admission?: No Admission Attestation Admission request attestation: Not indicated Disposition Plan Disposition Plan: Discharge Discharge Attestation Discharge Attestation: The patient and all family members were given an opportunity to ask questions and understood the discharge instructions. Discharge instructions specifically effects, indications for sooner follow up or return to the emergency department, and the expected course of current diagnosis. Patient condition: Stable Discharge Plan Plan Patient Disposition: HOME (Self Care) Patient condition on transfer: Stable Prescriptions/Referrals Prescriptions/Med Rec: New ondansetron 4 mg tablet,disintegrating 4 mg PO Q8H PRN (Reason: nausea and vomiting) Qty: 20 0RF meclizine 25 mg tablet 25 mg PO TID PRN (Reason: dizziness) Qty: 20 0RF No Action ibuprofen 800 mg tablet 800 mg PO TID PRN (Reason: pain) Qty: 30 0RF tramadol 50 mg tablet 50 mg PO BID PRN (Reason: pain) Qty: 6 0RF ibuprofen 800 mg tablet 800 mg PO TID PRN (Reason: pain) Qty: 60 0RF cefuroxime axetil 500 mg tablet 500 mg PO BID Qty: 14 0RF rizatriptan [Maxalt-SEARCH MARKETING ANALYST] 10 mg tablet,disintegrating See Rx Instructions .ROUTE .COMPLEX Qty: 20 0RF Rx Instructions: take 1 tab at onset of headache; if no relief may repeat 1 tab after at least 2 hrs; max = 3 tabs/24 hr pantoprazole [Protonix] 40 mg tablet,delayed release (DR/EC) 40 mg PO QDAY Qty: 30 0RF sulfamethoxazole-trimethoprim [Bactrim DS] 800-160 mg tablet 1 tab PO BID 7 Days Qty: 14 0RF Referrals: No Primary/Family,Physician [Primary Care Provider] - In 1 week Problem List Clinical Impression: Headache, Seizure-like activity, Syncope Patient/Caregiver Discharge Instructions Education Materials: Self-Care for Headaches, ED Fainting, Uncertain Cause, ED Seizure New Onset Unknown ... Additional Instructions: Follow-up with your primary care physician in 2 days for reevaluation and to be referred to neurologist for further evaluation and treatment of your headache seizure-like activity or possible syncopal episode recurrence persistent worsening symptoms or any emergent concern call 911 or go to the nearest emergency room keep hydrated increase water intake Pedialyte Gatorade for hydration take Tylenol or Motrin as needed for pain and Zofran for vomiting nausea Print Language: Barbadian Stand Alone Forms: Adele Award Info., Patient Portal Info Letter PA/ASSISTANT PROFESSOR OF PHILOSOPHY Supervising Physician PA/ASSISTANT PROFESSOR OF PHILOSOPHY Supervising Physician: DR Bueno
[2025-04-15] MEDS: ONDANSETRON ODT 4 MG TABRAP PO (20:33)
[2025-04-15] MEDS: ACETAMINOPHEN 325 MG TABLET 650 MG PO (20:33)
[2025-04-15] MEDS: MECLIZINE HCL 25 MG TABLET 50 MG PO (20:34)
== END 2025-04-15 20:38 | disposition home or self-care (01) ==
PROVIDERS: Nurse Practitioner Family; Emergency Provider Emergency Medicine
DX: R56.9 Unspecified convulsions (principal); R51.9 Headache, unspecified; R55 Syncope and collapse; R00.0 Tachycardia, unspecified
CPT/HCPCS: 36415; 70450; 80053; 80307; 80320; 81001; 84484; 84703; 85025; 93005; 99284; Q0162; A9270; G0480

== ENCOUNTER 2025-04-29 01:37 | Emergency (ER) | payer MEDICAID, SELFPAY ==
[2025-04-29 01:38] VITALS: BP 100/66; PULSE 74; RESP 18; TEMP 36.8; O2SAT 99; BMI 21.6
--- NOTE | 2025-04-29 02:12 | PD.EDBACK ---
ED Back Injury Pain RME/HPI General Chief Complaint: Abdominal Pain Stated Complaint: R FLANK PAIN Time Seen by Provider: 04/29/25 02:09 Arrival date/time: 04/29/25 01:37 44F with no significant PMH presents to ED with 1 week of intermittent R flank pain that goes towards groin, as well as some N/V and pressure when urinating. Patient denies dysuria/hematuria. Patient was here twice in the past 2 weeks for this. Review of CT from the shows bilateral kidney stones, largest 4 mm, but none have descended yet. Limitations: no limitations Related Data Previous Rx's ?Medication ?Instructions ?Recorded pantoprazole 40 mg tablet,delayed 40 mg PO QDAY #30 tabs 09/24/22 release (Protonix) ibuprofen 800 mg tablet 800 mg PO TID PRN pain #30 tabs 07/19/23 tramadol 50 mg tablet 50 mg PO BID PRN pain #6 tabs 07/19/23 cefuroxime axetil 500 mg tablet 500 mg PO BID #14 tabs 09/30/23 ibuprofen 800 mg tablet 800 mg PO TID PRN pain #60 tabs 09/30/23 rizatriptan 10 mg disintegrating See Rx Instructions PO .COMPLEX 01/08/25 tablet (Maxalt-COMPUTER REPAIRER) #20 tabs meclizine 25 mg tablet 25 mg PO TID PRN dizziness #20 tabs 04/15/25 ondansetron 4 mg disintegrating 4 mg PO Q8H PRN nausea and 04/15/25 tablet vomiting #20 tabs cephalexin 500 mg capsule 500 mg PO TID 7 days #21 caps 04/29/25 Allergies Allergy/AdvReac Type Severity Reaction Status Date / Time No Known Allergies Allergy Verified 04/29/25 01:41 Review of Systems Review of Systems Systems Reviewed: All systems reviewed, normal except as documented Gastrointestinal Gastrointestinal: Reports system reviewed and no additional complaints, except as documented, Reports as per HPI, Denies abdominal pain, Reports nausea and Denies vomiting Genitourinary Genitourinary: Reports as per HPI and Reports flank pain Past Medical History Past Medical History CARDIAC: Negative Congestive Heart Failure RESPIRATORY: Negative Chronic Obstructive Pulmonary Disease (COPD) GENITOURINARY: Positive Kidney Stones; Negative Renal Disease ENDOCRINE: Negative Diabetes Mellitus Type 1 or Diabetes Mellitus Type 2 Social History SMOKING STATUS: Never smoker SUBSTANCE USE: does not use ED Exam General Limitations: Present no limitations General appearance: Present alert and in no apparent distress Head Head exam: Present atraumatic Neck Neck exam: Present normal inspection, full ROM and trachea midline Chest Chest inspection: Present normal inspection and symmetric chest wall rise Psychiatric Psychiatric exam: Present normal affect and normal mood Skin Skin exam: Present warm, dry, intact and normal color Course Quality Measures none Orders Category Date Time Status CBC Stat Lab 04/29/25 02:20 Completed CMP [Comprehensive Metabolic Panel] Stat Lab 04/29/25 02:20 Completed HCG Qualitative,Urine Stat Lab 04/29/25 02:32 Completed Lipase Stat Lab 04/29/25 02:20 Completed Urinalysis, C/S if Indicated Stat Lab 04/29/25 02:32 Completed Urine Culture Stat Lab 04/29/25 02:32 Received Naproxen [Naprosyn] Med 04/29/25 03:24 Once 500 mg PO X1 ONE Potassium Chloride [K-Dur] Med 04/29/25 03:23 Once 40 meq PO X1 ONE cephALEXin [Keflex] Med 04/29/25 03:23 Once 500 mg PO X1 ONE Vital Signs Vital signs: Vital Signs Temperature 98.3 F 04/29/25 01:38 Pulse Rate 74 04/29/25 01:38 Respiratory Rate 18 04/29/25 01:38 Blood Pressure 100/66 04/29/25 01:38 Pulse Oximetry (%) 99 04/29/25 01:38 Oxygen Delivery Method Room Air 04/29/25 01:38 O2 at 99% on RA and WNLs Back Pain / Injury MDM Narrative MDM Narrative:: 44F with no significant PMH presents to ED with 1 week of intermittent R flank pain that goes towards groin, as well as some N/V and pressure when urinating. Patient denies dysuria/hematuria. Patient was here twice in the past 2 weeks for this. Review of CT from the shows bilateral kidney stones, largest 4 mm, but none have descended yet. Physical exam reveals well-appearing female. Patient is afebrile, calm, and alert. No leukocytosis. CMP unremarkable, except K mildly low; repleted. UA some RBCs and WBCs. Symptoms likely due to a kidney stone descending. Through shared decision-making, no CT due to recent CT, high radiation, clinical presentation, and no change in characterization of pain. Will try Cephalosporin ABX given patient recently had Bactrim. Patient data External [place] [facility] [place] Clinical information provided by:: patient Social determinants that could affect healthcare access:: none Patient has the following chronic illnesses:: none How is presenting disease/condition affected by chronic disease/condition?: no chronic disease Evaluation data The following diagnostics were reviewed and interpreted by me:: lab results Lab and/or radiology exams considered but not ordered:: ordered Interpretation Summary: above Medications / Prescriptions Medications or Prescriptions considered but not ordered:: ordered Medication administrations:: Medication Administration History Cephalexin HCl (Cephalexin 250 Mg Capsule) 500 mg PO X1 ONE Stop: 04/29/25 03:24 Naproxen (Naproxen 250 Mg Tablet) 500 mg PO X1 ONE Stop: 04/29/25 03:25 Potassium Chloride (Potassium Chloride 20 Meq Tabcr) 40 meq PO X1 ONE Stop: 04/29/25 03:24 above Consultations Consultation(s) initiated? (list below): No Diagnosis Differential diagnosis back pain/injury: lumbar radiculopathy, sciatica, strain of lumbar region, renal colic, pyelonephritis, thoracic back pain, AAA, discitis and other (flank pain) Most likely diagnosis given after review of the tests above:: flank pain Admission Indicated Admission indicated?: not indicated Admission Request Was there a request for admission?: No Disposition Plan Disposition Plan: Discharge Discharge Attestation Discharge Attestation: The patient and all family members were given an opportunity to ask questions and understood the discharge instructions. Discharge instructions specifically effects, indications for sooner follow up or return to the emergency department, and the expected course of current diagnosis. Patient condition: Stable Discharge Plan Plan Patient Disposition: HOME (Self Care) Discharge Disposition comment: Stable Prescriptions/Referrals Prescriptions/Med Rec: New cephalexin 500 mg capsule 500 mg PO TID 7 Days Qty: 21 0RF No Action ibuprofen 800 mg tablet 800 mg PO TID PRN (Reason: pain) Qty: 30 0RF tramadol 50 mg tablet 50 mg PO BID PRN (Reason: pain) Qty: 6 0RF ibuprofen 800 mg tablet 800 mg PO TID PRN (Reason: pain) Qty: 60 0RF cefuroxime axetil 500 mg tablet 500 mg PO BID Qty: 14 0RF rizatriptan [Maxalt-COMPUTER REPAIRER] 10 mg tablet,disintegrating See Rx Instructions .ROUTE .COMPLEX Qty: 20 0RF Rx Instructions: take 1 tab at onset of headache; if no relief may repeat 1 tab after at least 2 hrs; max = 3 tabs/24 hr ondansetron 4 mg tablet,disintegrating 4 mg PO Q8H PRN (Reason: nausea and vomiting) Qty: 20 0RF meclizine 25 mg tablet 25 mg PO TID PRN (Reason: dizziness) Qty: 20 0RF pantoprazole [Protonix] 40 mg tablet,delayed release (DR/EC) 40 mg PO QDAY Qty: 30 0RF Referrals: Markus Gore MD [Primary Care Provider] - In 1 week Problem List Clinical Impression: Flank pain Patient/Caregiver Discharge Instructions Education Materials: ED Flank Pain, Uncertain Cause Additional Instructions: Please follow-up with PCP within 24-48 hours and return immediately if symptoms worsen. NSAIDs like ibuprofen tend to work better for this type of pain. Print Language: Iranian Stand Alone Forms: Patient Portal Info Letter CONNOR/CONCRETE MASON Supervising Physician CONNOR/NICK Supervising Physician: Dr. Green
[2025-04-29 03:00] LABS: Collection Type, Urine Clean Catch
[2025-04-29 03:03] LABS: Basophils # (Auto) 0.1 Thou/mm3 (0.0-0.2); Basophils % (Auto) 1 % (0-2.5); Eosinophils # (Auto) 0.1 Thou/mm3 (0.0-0.5); Eosinophils % (Auto) 1 % (0-10); Hematocrit 33.3 % (36.0-46.0); Hemoglobin 11.7 g/dL (12.0-16.0); Immature Granulocytes Auto 0.03 Thou/mm3 (0.00-0.00); Lymphocytes # (Auto) 1.3 Thou/mm3 (1.0-4.8); Lymphocytes % (Auto) 17 % (10-50); Mean Corpuscular HGB Conc 35.1 g/dl (31.0-37.0); Mean Corpuscular Hemoglobin 31.8 pg (25.0-35.0); Mean Corpuscular Volume 91 fL (80-100); Monocytes # (Auto) 0.8 Thou/mm3 (0.0-0.8); Monocytes % (Auto) 10 % (0-12); Neutrophils # (Auto) 5.5 Thou/mm3 (1.8-7.7); Neutrophils % (Auto) 71 % (37-80); Nucleated Red Blood Cell # 0.00 Thou/mm3 (0.00-0.00); Nucleated Red Blood Cell % 0 /100 WBC (0); Platelet Count 321 Thou/mm3 (140-440); RDW Standard Deviation 42.0 fL (36.4-46.3); Red Blood Count 3.68 Miln/mm3 (4.00-5.20); White Blood Count 7.7 Thou/mm3 (3.6-11.0)
[2025-04-29 03:08] LABS: Bilirubin,Urine Negative (Negative); Blood,Urine 2+ (Negative); Clarity,Urine Clear (Clear/Hazy); Color,Urine Yellow (Lt Yel-Yel); Glucose, Urine Negative (Negative); HCG Qualitative,Urine Negative; Ketones,Urine Negative (Negative); Leukocyte Esterase,Urine Positive (Negative); Nitrite,Urine Negative (Negative); PH,Urine 5.5 (5.0-7.0); Protein,Urine Negative (Neg - Trace); RBC,Urine 55 /hpf (0-3); Specific Gravity,Urine 1.019 (1.001-1.035); Squamous Epithelial Cell,Urine 4 /hpf (0-5); Urobilinogen,Urine Negative mg/dL (0.0-1.0); WBC,Urine 15 /hpf (0-5)
[2025-04-29 03:09] LABS: Culture Indicated,Urine Yes
[2025-04-29 03:18] LABS: Alanine Aminotransferase < 7 U/L (10-49); Albumin, Serum 3.8 gm/dL (3.5-5.0); Albumin/Globulin Ratio 1.5 (1.2-2.2); Alkaline Phosphatase 44 U/L (46-116); Anion Gap 10 (7-16); Aspartate Amino Transferase 17 U/L (0-34); BUN/Creatinine Ratio 25 Ratio (12-20); Bilirubin,Total 0.6 mg/dL (0.3-1.2); Blood Urea Nitrogen 15 mg/dL (9-23); Calcium 9.1 mg/dL (8.3-10.6); Calcium (Corrected) 9.3 mg/dL (8.5-10.1); Carbon Dioxide 26.3 mMol/L (20.0-31.0); Chloride 108 mMol/L (98-107); Creatinine (Component) 0.6 mg/dL (0.6-1.3); Estimated Creatinine Clearance 107.7 mL/min (>60); Globulin 2.5 gm/dL (2.3-3.5); Glucose 72 mg/dL (74-106); Lipase 55 U/L (12-53); Osmolality,Calculated 286 (275-295); Potassium 3.1 mMol/L (3.4-5.1); Sodium 144 mMol/L (136-145); Total Protein 6.3 gm/dL (5.7-8.2); eGFR > 60 See Note
[2025-04-29] MEDS: NAPROXEN 250 MG TABLET 500 MG PO (03:48)
== END 2025-04-29 03:54 | disposition home or self-care (01) ==
PROVIDERS: Physician Assistant; Emergency Provider Emergency Medicine; PCP Family Medicine
DX: R10.9 Unspecified abdominal pain (principal)
CPT/HCPCS: 36415; 80053; 81001; 81025; 83690; 85025; 87077; 87086; 87186; 99283; A9270

== ENCOUNTER 2025-08-17 14:30 | Emergency (ER) | payer MEDICAID, SELFPAY ==
[2025-08-17 14:31] VITALS: BMI 23.3
[2025-08-17 14:47] VITALS: BP 111/74; PULSE 72; RESP 16; TEMP 36.8; O2SAT 99
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
[2025-08-17] MEDS: KETOROLAC INJ 30 MG/ML VIAL IM (17:05)
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
== END 2025-08-17 18:00 | disposition home or self-care (01) ==
PROVIDERS: Emergency Provider Emergency Medicine
DX: S16.1XXA Strain of muscle, fascia and tendon at neck level, initial encounter (principal); V49.40XA Driver injured in collision with unspecified motor vehicles in traffic accident, initial encounter; Y92.410 Unspecified street and highway as the place of occurrence of the external cause
CPT/HCPCS: 72040; 96372; 99283; J1885